=== PATIENT | male | born 1980 | race American Indian/Alaskan Native ===

== ENCOUNTER 2020-08-26 09:00 | Emergency (ER) | payer BC ==
[2020-08-26] MEDS ORDERED: CYCLOBENZAPRINE 10 MG TAB PO ONE (09:28)
[2020-08-26] MEDS ORDERED: KETOROLAC 60 MG/2 ML INJ IM ONE (09:28)
--- NOTE | 2020-08-26 09:30 | Emergency Department Report ---
- General Chief Complaint: Dyspnea/Respdistress Stated Complaint: JACQUELYN/COVID Time Seen by Provider: 08/26/20 09:16 Source: patient Mode of arrival: Stretcher Limitations: No Limitations - History of Present Illness Initial Comments: 40-year-old male with no significant past medical history presents to the ER via EMS with complaints of body aches, shortness of breath, and cough and a recent diagnosis of being Covid positive. Patient states that about a week and a half ago he was exposed to somebody who was Covid positive. He states last week Saturday he started having some mild body aches and decided to go get tested and he was notified that he was COVID-19 positive. Patient states that this morning he started having this sharp pain in his left neck, left head, chest, and legs after which he started having shortness of breath which scared him and decided come to the ER. He states that he still has been having intermittent nonproductive and productive cough, chills and body aches. He states that he stopped having subjective fevers 5 days ago. He denies any vomiting, nausea, diarrhea, UTI symptoms or any other symptoms at this time. MD Complaint: cough, other (SOB; Body aches; COVID +) -: days(s) (since last saturday) Severity: moderate - Related Data Previous Rx's Medication Instructions Recorded Last Taken Type Albuterol Mdi (or & Nicu Only) 2 puff IH QID PRN #8.5 gram 08/26/20 Unknown Rx [ProAir HFA Inhaler] Ketorolac [Toradol] 10 mg PO Q6H PRN #20 tablet 08/26/20 Unknown Rx predniSONE [Deltasone] 50 mg PO QDAY #5 tab 08/26/20 Unknown Rx Allergies Allergy/AdvReac Type Severity Reaction Status Date / Time No Known Allergies Allergy Unverified 08/26/20 09:11 ED Review of Systems ROS: Stated complaint: JACQUELYN/COVID Other details as noted in HPI Comment: All other systems reviewed and negative Constitutional: chills. denies: fever Eyes: denies: eye pain, eye discharge, vision change ENT: denies: ear pain, throat pain Respiratory: cough, shortness of breath. denies: wheezing Cardiovascular: chest pain (Left-sided/sharp) Gastrointestinal: abdominal pain. denies: nausea, vomiting, diarrhea, constipation, hematemesis, melena, hematochezia Genitourinary: denies: urgency, dysuria Musculoskeletal: myalgia Skin: denies: rash, lesions Psychiatric: denies: anxiety, depression Hematological/Lymphatic: denies: easy bleeding, easy bruising ED Past Medical Hx - Past Medical History Previous Medical History?: No - Surgical History Past Surgical History?: No - Social History Smoking Status: Never Smoker Substance Use Type: None - Medications Home Medications: Home Medications Medication Instructions Recorded Confirmed Last Taken Type Albuterol Mdi (or & Nicu Only) 2 puff IH QID PRN #8.5 gram 08/26/20 Unknown Rx [ProAir HFA Inhaler] Ketorolac [Toradol] 10 mg PO Q6H PRN #20 tablet 08/26/20 Unknown Rx predniSONE [Deltasone] 50 mg PO QDAY #5 tab 08/26/20 Unknown Rx ED Physical Exam - General Limitations: No Limitations General appearance: alert, anxious - Head Head exam: Present: atraumatic, normocephalic, normal inspection - Eye Eye exam: Present: normal appearance, PERRL, EOMI - Neck Neck exam: Present: normal inspection, full ROM, other (Patient has some mild also tenderness with spasm r left side of his neck). Absent: meningismus - Respiratory Respiratory exam: Present: normal lung sounds bilaterally. Absent: respiratory distress - Cardiovascular Cardiovascular Exam: Present: regular rate, normal rhythm, normal heart sounds - GI/Abdominal GI/Abdominal exam: Present: soft. Absent: distended, tenderness, guarding, rebound - Extremities Exam Extremities exam: Present: full ROM. Absent: pedal edema, calf tenderness - Back Exam Back exam: Present: normal inspection, full ROM - Neurological Exam Neurological exam: Present: alert, oriented X3, CN II-XII intact - Psychiatric Psychiatric exam: Present: normal affect, anxious - Skin Skin exam: Present: intact ED Course Vital Signs 08/26/20 09:29 Temperature 98.9 F Pulse Rate 86 Respiratory 18 Rate Blood Pressure 131/84 [Left] O2 Sat by Pulse 99 Oximetry ED Medical Decision Making - EKG Data -: EKG Interpreted by [facility] EKG shows normal: sinus rhythm Rate: normal - EKG Data Interpretation: nonspecific ST-T wave jennifer, other (probably nl early repol) - Radiology Data Radiology results: report reviewed - Medical Decision Making 40 year old healthy male, dx with COVID 19 last week saturday presented to ED by EMS with c/o cough, chills, sob and generalized body aches but the morning it was more prominent in left neck, left head, left chest and legs and so it scared him and he decided to come to ED to get checked. Upon arrival patient appeared anxious but otherwise he was well-appearing, did not appear to be in any acute pain or respiratory distress, appears well- hydrated, and he was afebrile, with a normal pulse ox, and remaining vitals were normal. He was ambulated in ER and pulse Ox remained 97% and pt had no c/o SOB. Chest x-ray shows nothing acute. EKG reviewed by MD and myself - no STEMI/ischemic changes, or significant arrhythmia Patient's history, physical exam findings, diagnostic testing does not suggest severe pneumonia, meningitis, PE, sepsis or other significant pathology requiring further testing, admission or emergent consult at this time. Discussed suspected dx and tx plan with patient. Patient expressed understanding of instructions and agrees with plan. Patient was stable at time of discharge. Critical care attestation.: If time is entered above; I have spent that time in minutes in the direct care of this critically ill patient, excluding procedure time. ED Disposition Clinical Impression: Bronchitis due to COVID-19 virus Disposition: - TO HOME OR SELFCARE Is pt being admited?: No Does the pt Need Aspirin: No Condition: Stable Instructions: How to Use a Metered Dose Inhaler, COVID-19: How to Protect Yourself and Others - CDC, Acute Bronchitis, Adult, Chronic Bronchitis (ED) Additional Instructions: Take the medication prescribed as directed. Recommend lots of fluids and rest. Follow up with your PCP or PCP listed on your d/c instructions. Return to ED if symptoms worsens or changes in any way. Prescriptions: predniSONE [Deltasone] 50 mg PO QDAY #5 tab Albuterol Mdi (or & Nicu Only) [ProAir HFA Inhaler] 2 puff IH QID PRN #8.5 gram PRN Reason: Shortness Of Breath Ketorolac [Toradol] 10 mg PO Q6H PRN #20 tablet PRN Reason: Pain Referrals: NIKO STANLEY MD [Primary Care Provider] - 3-5 Days Time of Disposition: 10:41
[2020-08-26 09:37] VITALS: BP 131/84
--- NOTE | 2020-08-26 10:19 | XRay Report ---
CHEST 1 VIEW INDICATION: cough/chest pain/sob/covid + COMPARISON: None FINDINGS: Support devices: None Heart: Normal Lungs/Pleura: Suboptimal inspiration, but no acute disease. IMPRESSION: 1. No acute disease. Signer Name: Reagan Montenegro MD Signed: 08/26/2020 10:14 AM Workstation Name: [id number]
== END 2020-08-26 11:00 | disposition home or self-care (01) ==
LOC: ED 09:00
DX: U07.1 COVID-19 (principal); J40 Bronchitis, not specified as acute or chronic; Z79.899 Other long term (current) drug therapy
CPT/HCPCS: 71045; 93005; 96372; 99283; J1885